=== PATIENT | female | born 1935 | race Hispanic/Latino ===

== ENCOUNTER 2017-11-21 00:34 | Emergency (ER) | payer MEDICARE ==
--- NOTE | 2017-11-21 00:53 | Emergency Department Report ---
ED CPR HPI - General Chief Complaint: Cardiac Arrest/CPR Stated Complaint: CARDIAC ARREST Time Seen by Provider: 11/21/17 00:46 Source: EMS (verbal report received from EMS.ems notes not available at time of chart dictation) - History of Present Illness Initial Comments: This is an 81-year-old female who is previously unknown to this provider, patient is brought to the hospital by EMS as out of hospital cardiac arrest. EMS reported verbally that the patient collapsed with family. They report that when they arrived to take care of the patient she was receiving CPR from her family. EMS intubated the patient with a 7.5 endotracheal tube, and continued high-quality CPR. Patient received 3 rounds of epinephrine. Fingerstick was in the 180s upon arrival to the ER. Prehospital rhythm was asystole/pulseless electrical activity. Upon arrival to the ER, pupils fixed and dilated, patient remains in pulseless electrical activity. Patient continues to receive high-quality CPR and epinephrine. Unfortunately, pulses cannot be reobtained. Patient down for greater than 25 minutes, therefore resuscitation efforts are terminated secondary to medical futility. Family is not currently available at this time. MD Complaint: stopped breathing -: minute(s) Place: home Bystander CPR Performed: Yes Initial Findings in the Field: no pulse, PEA Treatments Prior to Arrival: intubation, chest compressions, epinephrine mgs # ED Review of Systems ROS: Stated complaint: CARDIAC ARREST Other details as noted in HPI Comment: Unobtainable due to pts medical conditions ED Physical Exam - General Limitations: Other (intubated, nonverbal, GCS of 3) General appearance: other (patient is nonverbal) - Head Head exam: Present: atraumatic - Eye Eye exam: Present: other (pupils are fixed and dilated and do not react to light ) - ENT ENT exam: Present: other (endotracheal tube is noted in the oropharynx) - Neck Neck exam: Present: normal inspection - Respiratory Respiratory exam: Present: other (no breast sounds unless [id number] ventilation is applied) - Cardiovascular Cardiovascular Exam: Present: other (the patient is pulseless) - GI/Abdominal GI/Abdominal exam: Present: soft - External exam: Present: normal external exam - Extremities Exam Extremities exam: Present: normal inspection, other (patient has no pulses) - Back Exam Back exam: Present: normal inspection - Neurological Exam Neurological exam: Present: other (nonverbal) - Psychiatric Psychiatric exam: Present: other (patient is nonverbal) - Skin Skin exam: Present: dry ED Medical Decision Making - Medical Decision Making Differential diagnosis, including but not limited to: Acidosis, acute coronary syndrome, pulmonary embolus, sepsis, intracranial hemorrhage Critical care attestation.: If time is entered above; I have spent that time in minutes in the direct care of this critically ill patient, excluding procedure time. ED Disposition Clinical Impression: Cardiac arrest Disposition: DC-20 Is pt being admited?: No Does the pt Need Aspirin: No Condition: Undetermined
[2017-11-21] MEDS ORDERED: ADRENALIN ONE (12:37)
== END 2017-11-21 04:45 ==
LOC: ED 00:34
DX: I46.9 Cardiac arrest, cause unspecified (principal)
CPT/HCPCS: 82962; 99285; J0171